=== PATIENT | male | born 2000 | race Two or more races ===

== ENCOUNTER 2023-03-28 11:38 | Emergency (ER) | payer BC, OTHER ==
[~2023-03-28] VITALS: Ht 172.7 cm; Wt 128.2 kg
[2023-03-28 15:39] VITALS: BP 156/51; PULSE 104; RESP 15; TEMP 97.4; O2SAT 97
== END 2023-03-28 16:25 | disposition home or self-care (01) ==
LOC: ER 11:38
DX: S93.492A Sprain of other ligament of left ankle, initial encounter (principal); X50.1XXA Overexertion from prolonged static or awkward postures, initial encounter; Y93.89 Activity, other specified; Y92.59 Other trade areas as the place of occurrence of the external cause; Y99.8 Other external cause status
CPT/HCPCS: 73610